=== PATIENT | female | born 1995 | race Caucasian/White ===

== ENCOUNTER → 2019-06-29 | Outpatient (CLI) | payer OTHER ==
[2014-07-28 12:01] VITALS: BP 119/67
[~2019-06-29] MED LIST: ATIVAN1 MG PO; BUPROPRION; ELAVIL25 MG PO; SERTRALINE50 MG PO; VALIUM10 MG PO; WELLBUTRIN SR150 M1 PO
== END ==
LOC: RAD 19:05
DX: S82.62XA Displaced fracture of lateral malleolus of left fibula, initial encounter for closed fracture (principal)

== ENCOUNTER 2020-10-17 17:35 | Emergency (ER) | payer OTHER ==
[2020-10-17] MEDS ORDERED: LAMICTAL200 M1 PO (17:58)
[2020-10-17 18:24] LABS: BASO # 0.1 (0.02-0.10); EOS % 0.3 % (1.0-5.0); HEMATOCRIT 39.1 % (37.0-47.0); HEMOGLOBIN 12.6 g/dL (12.5-16.0); LYMPH# 1.8 (1.50-4.00); MEAN CELL VOLUME 92 fl (78-100); MEAN CORPUSCULAR HEMOGLOBIN 30 pg (27-31); MEAN CORPUSCULAR HGB CONC 32 g/dL (33-37); MEAN PLATELET VOLUME 9.3 fl (7.4-10.4); MONO # 0.5 (0.20-0.80); NEU # 7.7 (1.40-6.50); PLATELET COUNT 302 K/mm3 (130-400); RED BLOOD COUNT 4.23 M/mm3 (4.10-5.30); RED CELL DISTRIBUTION WIDTH 13.4 % (11.5-14.5); WHITE BLOOD COUNT 10.1 K/mm3 (4.8-10.8)
[2020-10-17 18:30] LABS: ALBUMIN 4.4 g/dL (3.5-5.0); POTASSIUM 3.2 mmol/L (3.5-5.1); SODIUM 138 mmol/L (136-145)
[2020-10-17 18:31] LABS: CALCIUM 8.8 mg/dL (8.3-10.5)
[2020-10-17 18:32] LABS: GLUCOSE 97 mg/dL (65-105)
[2020-10-17 18:33] LABS: CARBON DIOXIDE 19 mmol/L (22-29); TOTAL PROTEIN 7.5 g/dL (6.4-8.3)
[2020-10-17 18:34] LABS: TOTAL BILIRUBIN 0.3 mg/dL (0.2-1.2)
[2020-10-17 18:35] LABS: ALCOHOL IN-HOUSE 83 mg/dL (<10)
[2020-10-17 18:38] LABS: AST-SGOT 22 U/L (5-34)
[2020-10-17 18:39] LABS: ALT/SGPT 18 U/L (0-55)
[2020-10-17 18:40] LABS: ACETAMINOPHEN < 1 ug/mL
[2020-10-17 18:41] LABS: LIPASE 34 U/L (8-78)
[2020-10-17 18:45] LABS: PARTIAL THROMBOPLASTIN TIME 23.4 SECONDS (21.0-32.0); PROTHROMBIN TIME 9.3 SECONDS (9.0-12.0)
[2020-10-17 18:47] LABS: D-DIMER 0.57 mg/L FEU (0.15-0.50); TROPONIN-I < 0.03 ng/mL (<0.030)
[2020-10-17 19:18] LABS: URINE APPEARANCE CLEAR; URINE BILIRUBIN NEGATIVE (NEGATIVE); URINE BLOOD 250 ery/uL (NEGATIVE); URINE COLOR YELLOW; URINE GLUCOSE NEGATIVE (NEGATIVE); URINE KETONE NEGATIVE (NEGATIVE); URINE LEUKOCYTE ESTERASE NEGATIVE (NEGATIVE); URINE NITRATE NEGATIVE (NEGATIVE); URINE PROTEIN(semi-quant) TRACE mg/dL (NEGATIVE); URINE UROBILINOGEN NORMAL (NORMAL); URINE WBC 0-1 /hpf (0-3)
[2020-10-17] MEDS ORDERED: ATIVAN0.5 MG PO (21:39)
[2020-10-17 22:01] VITALS: BP 142/66
== END 2020-10-17 22:01 | disposition home or self-care (01) ==
LOC: ED 17:35
PROVIDERS: Nurse Practitioner
DX: F10.139 Alcohol abuse with withdrawal, unspecified (principal); F32.9 Major depressive disorder, single episode, unspecified; F41.9 Anxiety disorder, unspecified; Z20.822 Contact with and (suspected) exposure to COVID-19
CPT/HCPCS: J2060; J7030; Q9967

== ENCOUNTER 2020-11-07 09:53 | Emergency (ER) | payer OTHER ==
[~2020-11-07 09:53] MED LIST changes: +ATIVAN0.5 MG PO; +LAMICTAL200 M1 PO
[2020-11-07 10:33] LABS: BASO # 0.1 (0.02-0.10); EOS % 0.3 % (1.0-5.0); HEMATOCRIT 42.9 % (37.0-47.0); LYMPH# 2.6 (1.50-4.00); MEAN CELL VOLUME 90 fl (78-100); MEAN CORPUSCULAR HEMOGLOBIN 30 pg (27-31); MEAN CORPUSCULAR HGB CONC 33 g/dL (33-37); MEAN PLATELET VOLUME 9.4 fl (7.4-10.4); MONO # 0.6 (0.20-0.80); NEU # 3.8 (1.40-6.50); PLATELET COUNT 368 K/mm3 (130-400); RED BLOOD COUNT 4.75 M/mm3 (4.10-5.30); WHITE BLOOD COUNT 7.1 K/mm3 (4.8-10.8)
[2020-11-07 10:45] LABS: ALBUMIN 4.8 g/dL (3.5-5.0); POTASSIUM 3.9 mmol/L (3.5-5.1); SODIUM 140 mmol/L (136-145)
[2020-11-07 10:46] LABS: CALCIUM 9.2 mg/dL (8.3-10.5)
[2020-11-07 10:48] LABS: GLUCOSE 98 mg/dL (65-105); TOTAL PROTEIN 8.3 g/dL (6.4-8.3)
[2020-11-07 10:49] LABS: CARBON DIOXIDE 23 mmol/L (22-29); TOTAL BILIRUBIN 0.5 mg/dL (0.2-1.2)
[2020-11-07 10:50] LABS: ALCOHOL IN-HOUSE 279 mg/dL (<10)
[2020-11-07 10:53] LABS: AST-SGOT 41 U/L (5-34)
[2020-11-07 10:55] LABS: ALT/SGPT 22 U/L (0-55)
[2020-11-07 10:56] LABS: URINE APPEARANCE CLOUDY; URINE BILIRUBIN NEGATIVE (NEGATIVE); URINE BLOOD TRACE (NEGATIVE); URINE COLOR YELLOW; URINE GLUCOSE NEGATIVE (NEGATIVE); URINE KETONE NEGATIVE (NEGATIVE); URINE LEUKOCYTE ESTERASE TRACE (NEGATIVE); URINE NITRATE NEGATIVE (NEGATIVE); URINE PROTEIN(semi-quant) 1+ mg/dL (NEGATIVE); URINE UROBILINOGEN NORMAL (NORMAL)
[2020-11-07 10:56] LABS: MAGNESIUM 1.96 mg/dL (1.60-2.60)
[2020-11-07 10:57] LABS: ACETAMINOPHEN < 1 ug/mL; LIPASE 38 U/L (8-78)
[2020-11-07 10:57] LABS: URINE MUCUS PRESENT (NOT PRESENT)
[2020-11-07 12:10] VITALS: BP 142/70
== END 2020-11-07 12:05 | disposition home or self-care (01) ==
LOC: ED 09:53
PROVIDERS: Nurse Practitioner
DX: F10.229 Alcohol dependence with intoxication, unspecified (principal); F32.9 Major depressive disorder, single episode, unspecified; F41.9 Anxiety disorder, unspecified; Z20.822 Contact with and (suspected) exposure to COVID-19
CPT/HCPCS: J2405; J7030

== ENCOUNTER 2022-03-17 13:35 | Emergency (ER) | payer BC ==
[2022-03-17] MEDS ORDERED: SERTRALINE HYD100 MG PO (13:45)
[2022-03-17 14:40] LABS: BASO # 0.09 K/mm3 (0.02-0.10); EOS # 0.03 K/mm3 (0.04-0.40); EOS % 0.6 % (1.0-5.0); HEMOGLOBIN 14.4 g/dL (12.5-16.0); LYMPH# 1.98 K/mm3 (1.50-4.00); MEAN CELL VOLUME 88 fl (78-100); MEAN CORPUSCULAR HEMOGLOBIN 29 pg (27-31); MEAN CORPUSCULAR HGB CONC 34 g/dL (33-37); MONO # 0.26 K/mm3 (0.20-0.80); PLATELET COUNT 378 K/mm3 (130-400); RED BLOOD COUNT 4.91 M/mm3 (4.10-5.30); WHITE BLOOD COUNT 5.3 K/mm3 (4.8-10.8)
[2022-03-17 14:52] LABS: ALBUMIN 4.7 g/dL (3.5-5.0); POTASSIUM 3.8 mmol/L (3.5-5.1)
[2022-03-17 14:53] LABS: CALCIUM 8.8 mg/dL (8.3-10.5)
[2022-03-17 14:55] LABS: TOTAL PROTEIN 8.4 g/dL (6.4-8.3)
[2022-03-17 15:01] LABS: MAGNESIUM 2.23 mg/dL (1.60-2.60)
[2022-03-17 16:29] LABS: URINE APPEARANCE HAZY; URINE COLOR YELLOW
[2022-03-17 16:30] LABS: URINE BILIRUBIN NEGATIVE (NEGATIVE); URINE BLOOD 50 ery/uL (NEGATIVE); URINE GLUCOSE NEGATIVE (NEGATIVE); URINE KETONE NEGATIVE (NEGATIVE); URINE LEUKOCYTE ESTERASE NEGATIVE (NEGATIVE); URINE NITRATE NEGATIVE (NEGATIVE); URINE PROTEIN(semi-quant) NEGATIVE (NEGATIVE); URINE UROBILINOGEN NORMAL (NORMAL); URINE WBC 0-1 /hpf (0-3)
[2022-03-17] MEDS ORDERED: NEURONTIN300 MG/CAP (17:21)
[2022-03-17 20:51] VITALS: BP 128/84
== END 2022-03-17 21:34 ==
LOC: ED 13:35
PROVIDERS: Family Medicine
DX: F10.139 Alcohol abuse with withdrawal, unspecified (principal); F41.9 Anxiety disorder, unspecified; F17.290 Nicotine dependence, other tobacco product, uncomplicated; Z20.822 Contact with and (suspected) exposure to COVID-19; Z28.310 Unvaccinated for COVID-19
CPT/HCPCS: J2060; J3411; J3490; J7030